=== PATIENT | female | born 1970 | race Caucasian/White ===

== ENCOUNTER 2019-02-16 22:30 | Inpatient (IN) | payer SELFPAY ==
[~2019-02-16] VITALS: Ht 157.5 cm; Wt 63.5 kg
[~2019-02-16 22:30] MED LIST: CIPROFLOXACIN500 MG PO; KLONOPIN1 MG ORAL; LATUDA20 MG PO; MEDROL DOSEPAK4 MG ORAL; PREDNISONE20 MG ORAL; PROAIR HFA8.5 GM INH; SERTRALINE HCL100 MG PO; SYMBICORT 1601 PUFFS INH; TRAMADOL HCL50 MG ORAL; ZITHROMAX250 MG ORAL
--- NOTE | 2019-02-16 22:40 | NUR ---
ED Nurse Note: PT WAS RUSHED TO ED BY BOYFRIEND C/O ASTHMA INTACT. PER BOYFRIEND (DIEGO) "SHE BEGAN TO WHEEZE AND THEN BECAME LIMP". PT WAS UNRESPONSIVE AND IMMEDIATE CPR WAS INTIATED. PT SKIN IS DIAPHORECTIC.
[2019-02-16 22:50] VITALS: BP 134/76
--- NOTE | 2019-02-16 22:50 | NUR ---
ED Nurse Note: PT WAS INTUBATED BY SERENA RT AT BEDSIDE
[2019-02-16] MEDS: Albuterol/Ipratropium 3ml neb HHN SCH ×6 (22:55→23:56)
--- NOTE | 2019-02-16 22:55 | NUR ---
RESPIRATORY NOTE: Pt came in with asthma attack/ respiratory failure so assisted ERMD with intubation. Pt intubated with 7.5 size ett at 24 at the lip secured by anchor fast. Placed pt on Vent setting of ACVC RR 18, Vt 500, FIO2 100%, and peep +5. After blood gas result titrated FIO2 to 30% ERMD aware. Pt is stable with family. Alarms are on and audible. Vent is plugged into red outlet. Will continue to monitor pt's progress.
--- NOTE | 2019-02-16 22:57 | Emergency Room Report ---
History of Present Illness General Chief Complaint: shortness of breath Source: Patient Present Illness HPI Patient is a 48-year-old female brought in by family member after increased difficulty with breathing. Patient a prior history of asthma. Patient had prior intubation in the past. Patient was noted noted to have acute onset of worsening difficulty with respirations. She had prior history of she reportedly been doing well throughout the day. Patient had been able to go shopping and had been taking her albuterol intermittently. She had not been on any steroids. She had not recently been having any productive cough. She had no known prior cardiac history. Allergies: Coded Allergies: NO KNOWN ALLERGIES (Unverified Allergy, Unknown, 07/11/15) Patient History Past Medical History: see triage record, asthma, other - anxiety Reviewed Nursing Documentation: PMH: Agreed; PSxH: Agreed Nursing Documentation-PMH Hx Cardiac Problems: No Hx Asthma: Yes Hx Cancer: No Hx Gastrointestinal Problems: No Hx Neurological Problems: Yes Hx Headaches: Yes Hx Weakness: Yes Review of Systems All Other Systems: negative except mentioned in HPI Physical Exam Sp02 EP Interpretation: reviewed General Appearance: severe distress, lethargic, other - cyanotic apneic Eyes: bilateral eye other - PERRL ENT: other Respiratory: other - no respirations Gastrointestinal: non tender, soft Procedures Critical Care Time Critical Care Time Patient had a critical medical condition which untreated could potentially result in life or limb threatening injury. Total critical care time excluding procedures approximately 45 minutes. Intubation Intubation : Consent: Emergent Intubation Method: orotracheal Tube Size (cm): 7.0 Breath Sounds after Intubation: equal Intubation Complications: no complications Post Intubation Xray: Yes Progress/Xray Impression: adequate ET tube placement Attempts: One Patient Tolerated: Well Complications: None Medical Decision Making Diagnostic Impression: Primary Impression: Respiratory failure Additional Impression: Status asthmaticus ER Course Patient presented for respiratory arrest. Differential diagnosis include was not limited to status asthmaticus, narcotic overdose, seizure, syncopal episode among others. Because of complexity of patient's case laboratory testing and imaging studies were ordered. Patient was noted to have initial been brought in by private vehicle and was initially seen to be cyanotic and apneic. Patient was started on positive pressure ventilation via bag valve mask. She was noted to have absent pulses initially was briefly undergoing CPR. She had initial return of circulation after several minutes of [id number]. Patient was started on IV fluids. She was given breathing treatments as well as magnesium. She was intubated due to apnea and subsequently was noted to have some improvement in her mental status. She was started on propofol drip to improve sedation as well as given Ativan. Laboratory testing was notable for elevated white blood count. Dr. Shon Redding was contacted for inpatient management. Labs Test 02/16/19 22:38 02/16/19 22:45 02/16/19 23:10 Arterial Blood pH 7.431 (7.350-7.450) Arterial Blood Partial Pressure CO2 35.4 mmHg (35.0-45.0) Arterial Blood Partial Pressure O2 390.2 mmHg (75.0-100.0) Arterial Blood HCO3 23.0 mmol/L (22.0-26.0) Arterial Blood Oxygen Saturation 99.4 % (95-100) Arterial Blood Base Excess -0.8 (-2-2) Anthony Test Positive White Blood Count 18.2 K/UL (4.8-10.8) Red Blood Count 4.64 M/UL (4.20-5.40) Hemoglobin 12.1 G/DL (12.0-16.0) Hematocrit 38.4 % (37.0-47.0) Mean Corpuscular Volume 83 FL (80-99) Mean Corpuscular Hemoglobin 26.0 PG (27.0-31.0) Mean Corpuscular Hemoglobin Concent 31.4 G/DL (32.0-36.0) Red Cell Distribution Width 15.7 % (11.6-14.8) Platelet Count 426 K/UL (150-450) Mean Platelet Volume 6.2 FL (6.5-10.1) Neutrophils (%) (Auto) % (45.0-75.0) Lymphocytes (%) (Auto) % (20.0-45.0) Monocytes (%) (Auto) % (1.0-10.0) Eosinophils (%) (Auto) % (0.0-3.0) Basophils (%) (Auto) % (0.0-2.0) Differential Total Cells Counted 100 Neutrophils % (Manual) 26 % (45-75) Lymphocytes % (Manual) 52 % (20-45) Monocytes % (Manual) 9 % (1-10) Eosinophils % (Manual) 12 % (0-3) Basophils % (Manual) 1 % (0-2) Band Neutrophils 0 % (0-8) Platelet Estimate Adequate Platelet Morphology Normal Anisocytosis 1+ Prothrombin Time 10.6 SEC (9.30-11.50) Prothromb Time International Ratio 1.0 (0.9-1.1) Activated Partial Thromboplast Time 23 SEC (23-33) D-Dimer 0.61 mg/L FEU (0.00-0.49) Sodium Level 140 MMOL/L (136-145) Potassium Level 3.7 MMOL/L (3.5-5.1) Chloride Level 104 MMOL/L (98-107) Carbon Dioxide Level 23 MMOL/L (21-32) Anion Gap 13 mmol/L (5-15) Blood Urea Nitrogen 9 mg/dL (7-18) Creatinine 1.1 MG/DL (0.55-1.30) Estimat Glomerular Filtration Rate 53.5 mL/min (>60) Glucose Level 192 MG/DL (74-106) Calcium Level 8.4 MG/DL (8.5-10.1) Total Bilirubin 0.2 MG/DL (0.2-1.0) Aspartate Amino Transf (AST/SGOT) 24 U/L (15-37) Alanine Aminotransferase (ALT/SGPT) 16 U/L (12-78) Alkaline Phosphatase 93 U/L (46-116) Troponin I 0.000 ng/mL (0.000-0.056) Pro-B-Type Natriuretic Peptide 47 pg/mL (0-125) Total Protein 6.8 G/DL (6.4-8.2) Albumin 3.9 G/DL (3.4-5.0) Globulin 2.9 g/dL Albumin/Globulin Ratio 1.3 (1.0-2.7) Triglycerides Level 139 MG/DL (30-150) Thyroid Stimulating Hormone (TSH) 2.231 uiU/mL (0.358-3.740) Salicylates Level 4.8 ug/mL (2.8-20) Acetaminophen Level < 2 MCG/ML (10-30) Serum Alcohol < 3 mg/dL Urine Color Pale yellow Urine Appearance Clear Urine pH 7 (4.5-8.0) Urine Specific [place] 1.005 (1.005-1.035) Urine Protein Negative (NEGATIVE) Urine Glucose (UA) Negative (NEGATIVE) Urine Ketones Negative (NEGATIVE) Urine Blood 1+ (NEGATIVE) Urine Nitrite Negative (NEGATIVE) Urine Bilirubin Negative (NEGATIVE) Urine Urobilinogen Normal MG/DL (0.0-1.0) Urine Leukocyte Esterase Negative (NEGATIVE) Urine RBC 0-2 /HPF (0 - 2) Urine WBC 0-2 /HPF (0 - 2) Urine Squamous Epithelial Cells Occasional /LPF Urine Bacteria Occasional /HPF (NONE) Urine HCG, Qualitative Negative (NEGATIVE) Urine Opiates Screen Negative (NEGATIVE) Urine Barbiturates Screen Negative (NEGATIVE) Phencyclidine (PCP) Screen Negative (NEGATIVE) Urine Amphetamines Screen Negative (NEGATIVE) Urine Benzodiazepines Screen Negative (NEGATIVE) Urine Cocaine Screen Negative (NEGATIVE) Urine Marijuana (THC) Screen Negative (NEGATIVE) Status: improved Disposition: ADMITTED INPATIENT Condition: Critical NorrisRalph MD Feb 16, 2019 22:57
--- NOTE | 2019-02-16 23:00 | NUR ---
ED Nurse Note: ERMD PUSHED 3ML OF PROPOFOL
--- NOTE | 2019-02-16 23:00 | NUR ---
ED Nurse Note: caitlin () [phone]
[2019-02-16 23:05] VITALS: BP 109/80
--- NOTE | 2019-02-16 23:05 | NUR ---
ED Nurse Note: PROPOFOL INFUSION INTIATED AT 20MCG/KG/MIN PER ERMD ORDER
[2019-02-16 23:20] VITALS: BP 90/63
[2019-02-16 23:24] LABS: ANION GAP 13 mmol/L (5-15); BLOOD UREA NITROGEN 9 mg/dL (7-18); CALCIUM 8.4 MG/DL (8.5-10.1); CARBON DIOXIDE 23 MMOL/L (21-32); CHLORIDE 104 MMOL/L (98-107); CREATININE 1.1 MG/DL (0.55-1.30); POTASSIUM 3.7 MMOL/L (3.5-5.1); SODIUM 140 MMOL/L (136-145)
--- NOTE | 2019-02-16 23:27 | Diagnostic Imaging Report ---
Indication: Dyspnea Comparison: 08/10/2015 A single view chest radiograph was obtained. Findings: Endotracheal tube is 4 cm above the kendra. The NG tube is within the stomach with the proximal port about the 4 to 5 cm below the GE junction. The lungs are clear. Heart size is normal. Bones are unremarkable. IMPRESSION: Endotracheal tube and nasogastric tube satisfactory position.
[2019-02-16 23:30] LABS: APPEARANCE,URINE CLEAR; BILIRUBIN, URINE NEGATIVE (NEGATIVE); COLOR,URINE PALE YELLOW; GLUCOSE, URINE (UA) NEGATIVE (NEGATIVE); KETONES,URINE NEGATIVE (NEGATIVE); LEUKOCYTE ESTERASE ,URINE NEGATIVE (NEGATIVE); NITRITE,URINE NEGATIVE (NEGATIVE); PH,URINE 7 (4.5-8.0); PROTEIN,URINE NEGATIVE (NEGATIVE); UROBILINOGEN,URINE NORMAL MG/DL (0.0-1.0)
--- NOTE | 2019-02-16 23:30 | NUR ---
ED Nurse Note: JAKE CORTEZ AT BEDSIDE
[2019-02-16 23:35] VITALS: BP 121/77
[2019-02-16 23:37] LABS: HEMATOCRIT 38.4 % (37.0-47.0); HEMOGLOBIN 12.1 G/DL (12.0-16.0); MEAN CORPUSCULAR VOLUME 83 FL (80-99); PLATELET COUNT 426 K/UL (150-450); RED BLOOD COUNT 4.64 M/UL (4.20-5.40); RED CELL DISTRIBUTION WIDTH 15.7 % (11.6-14.8); WHITE BLOOD COUNT 18.2 K/UL (4.8-10.8)
[2019-02-16 23:39] LABS: ALANINE AMINOTRANSFERASE 16 U/L (12-78); ALBUMIN 3.9 G/DL (3.4-5.0); ALBUMIN/GLOBULIN RATIO 1.3 (1.0-2.7); ALKALINE PHOSPHATASE 93 U/L (46-116); ASPARTATE AMINO TRANSFERASE 24 U/L (15-37); BILIRUBIN,TOTAL 0.2 MG/DL (0.2-1.0)
[2019-02-16] MEDS ORDERED: LORazepam Inj 2mg/ml 1ml IV ONE (23:45)
[2019-02-16 23:50] VITALS: BP 123/79
[2019-02-16 23:57] LABS: TRIGLYCERIDES 139 MG/DL (30-150)
[2019-02-17] VITALS (36 sets, daily range): BP systolic 93–149; BP diastolic 42–109
[2019-02-17] MEDS ORDERED: Solu-MEDROL 125mg Inj IVP ONE
[2019-02-17] MEDS: Albuterol/Ipratropium 3ml neb HHN SCH ×6 (00:24→22:56)
--- NOTE | 2019-02-17 00:40 | NUR ---
ED Nurse Note: TELEPHONE REPORT GIVEN TO RACQUEL BROWN
[2019-02-17] MEDS ORDERED: LAMOTRIGINE100 M2 PO (00:49)
--- NOTE | 2019-02-17 01:00 | NUR ---
ED Nurse Note: PT BROUGHT UP WITH ALEXIA RN AND SHAYLA EMT. PT IS AOX4, SKIN INTACT. 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 PT SHOWS NO CURRENT SIGNS OF DISTRESS. ALL BELONGINGS SENT HOME EXCEPT FOR CELLPHONE.
--- NOTE | 2019-02-17 01:20 | NUR ---
NURSE NOTES: Patient is transferred from ED and received report from RACQUEL Cardenas. Alert and oriented x4. Able to follow commands and able make needs known by writing. ETT 7.5/24 and vent setting AC 18, TV 500, FiO2 30% and Peep 5. Propofol drip running at 25mcg/kg/hr via left IJ 18G. Right wrist IV 20G intact and clean. ST 100s on monitor. Toth intact and draining by gravity with yellow color urine. Call-light placed in easy reach. Will continue plan of care.
--- NOTE | 2019-02-17 01:30 | NUR ---
NURSE NOTES: Patient is still awake and calm, RASS 0. Increased propofol dip to 30mcg/kg/hr=13.5ml/hr.
--- NOTE | 2019-02-17 01:32 | NUR ---
NURSE NOTES: Paged Dr. Redding for admission orders.
--- NOTE | 2019-02-17 01:45 | NUR ---
NURSE NOTES: Patient is still awake and calm, RASS 0. Increased propofol dip to 35mcg/kg/hr=15.75ml/hr.
--- NOTE | 2019-02-17 02:00 | NUR ---
NURSE NOTES: Patient is drowsy, RASS -1. Increased propofol dip to 40mcg/kg/hr=18ml/hr.
--- NOTE | 2019-02-17 02:02 | NUR ---
NURSE NOTES: Called Dr. Redding and left message for admission orders.
--- NOTE | 2019-02-17 02:15 | NUR ---
NURSE NOTES: Patient is drowsy, RASS -1. Increased propofol dip to 45mcg/kg/hr=20.25ml/hr.
--- NOTE | 2019-02-17 02:30 | NUR ---
NURSE NOTES: Patient is light sedated, RASS -2. Continue propofol dip @ 45mcg/kg/hr=20.25ml/hr.
--- NOTE | 2019-02-17 05:12 | NUR ---
NURSE NOTES: Obtained admission orders from Dr. Flores.
[2019-02-17] MEDS ORDERED: Albuterol ud Inhalation HHN PRN (05:15)
[2019-02-17] MEDS ORDERED: D5NS 1,000 ML IV SCH (05:15)
--- NOTE | 2019-02-17 05:30 | NUR ---
NURSE NOTES: Patient is alert and asking for extubation. Propofol drip started @45mcg/kg/hr=20.25ml/hr. Will continue plan of care.
--- NOTE | 2019-02-17 05:44 | NUR ---
NURSE NOTES: Patient refused NG tube insertion. Explained benefits and risks x3. Still refused. Patient is asking for extubation.
[2019-02-17] MEDS: Solu-MEDROL 40mg Inj IVP SCH ×3 (05:58→21:59)
[2019-02-17] MEDS: Azithromycin 500 MG in D5W 275 ML IV SCH (06:43)
--- NOTE | 2019-02-17 07:30 | NUR ---
HAND-OFF: Report given to RACQUEL Prieto. Endorsed plan of care.
[2019-02-17] MEDS: LORazepam Inj 2mg/ml 1ml IV PRN ×2 (07:32→11:53)
--- NOTE | 2019-02-17 07:40 | NUR ---
NURSE NOTES: Report received from Everett CLEMENT. Pt alert and oriented x4, able to make needs known. Pt on potline monitor, ST 100s. Pt orally intubated ETT 7.5, 24 cm at the lipline, AC 18, TV 300, 30% FiO2, PEEP 5. Toth noted and intact with draining clear yellow urine. Right W 20G redness and swelling noted. Left EJ 18 G connected to propofol 50 mg/hr. 22G left hand IV inserted. Safety measures in place with bed locked and in lowest position, side rails x3 up and bed alarm on. Will continue to monitor and continue plan of care.
[2019-02-17 08:33] LABS: HEMATOCRIT 34.1 % (37.0-47.0); HEMOGLOBIN 10.8 G/DL (12.0-16.0); MEAN CORPUSCULAR VOLUME 81 FL (80-99); PLATELET COUNT 243 K/UL (150-450); RED BLOOD COUNT 4.22 M/UL (4.20-5.40); RED CELL DISTRIBUTION WIDTH 15.1 % (11.6-14.8); WHITE BLOOD COUNT 9.4 K/UL (4.8-10.8)
[2019-02-17] MEDS: cefTRIAXone 1 GM in D5W 55 ML IVPB SCH (08:41)
[2019-02-17] MEDS: Heparin 5000 units/ml inj SUBQ SCH ×2 (08:42→20:52)
[2019-02-17 08:43] LABS: ANION GAP 12 mmol/L (5-15); BLOOD UREA NITROGEN 7 mg/dL (7-18); CALCIUM 8.2 MG/DL (8.5-10.1); CARBON DIOXIDE 22 MMOL/L (21-32); CHLORIDE 100 MMOL/L (98-107); CREATININE 0.8 MG/DL (0.55-1.30); POTASSIUM 3.4 MMOL/L (3.5-5.1); SODIUM 134 MMOL/L (136-145)
[2019-02-17] MEDS ORDERED: Pantoprazole Inj IVP SCH (09:00)
--- NOTE | 2019-02-17 09:34 | NUR ---
NURSE NOTES: Pt given ativan for agitation. Propofol decreased to 45 mg/hr. Will continue to monitor.
--- NOTE | 2019-02-17 10:15 | History & Physical ---
History and Physical History & Physicial History and Physical HPI Patient is a 48-year-old female with a prior history of Asthma and Anxiety, admitted with Asthma exacerbation requiring intubation in the ED. Patient had prior intubation in the past. Patient was noted noted to have acute onset of worsening difficulty with respirations. She had prior history of she reportedly been doing well throughout the day. She had not been on any steroids. She had not recently been having any productive cough. She had no known prior cardiac history. 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 Impression: Respiratory failur Status asthmaticus History of Anxiety Hyperglycemia Elevated WCC - possible chest infection Plan AC ventilation Sedation: Propofol/Fentenyl IV Solumdrol Monitor labs, supplement H, Mg ISS Wean ventilator as tolerated PPX IV antibiotics given elevated WCC IV Fluids CXR: noted Labs noted Test 02/16/19 22:38 02/16/19 22:45 02/16/19 23:10 Arterial Blood pH 7.431 (7.350-7.450) Arterial Blood Partial Pressure CO2 35.4 mmHg (35.0-45.0) Arterial Blood Partial Pressure O2 390.2 mmHg (75.0-100.0) Arterial Blood HCO3 23.0 mmol/L (22.0-26.0) Arterial Blood Oxygen Saturation 99.4 % (95-100) Arterial Blood Base Excess -0.8 (-2-2) Anthony Test Positive White Blood Count 18.2 K/UL (4.8-10.8) Red Blood Count 4.64 M/UL (4.20-5.40) Hemoglobin 12.1 G/DL (12.0-16.0) Hematocrit 38.4 % (37.0-47.0) Mean Corpuscular Volume 83 FL (80-99) Mean Corpuscular Hemoglobin 26.0 PG (27.0-31.0) Mean Corpuscular Hemoglobin Concent 31.4 G/DL (32.0-36.0) Red Cell Distribution Width 15.7 % (11.6-14.8) Platelet Count 426 K/UL (150-450) Mean Platelet Volume 6.2 FL (6.5-10.1) Neutrophils (%) (Auto) % (45.0-75.0) Lymphocytes (%) (Auto) % (20.0-45.0) Monocytes (%) (Auto) % (1.0-10.0) Eosinophils (%) (Auto) % (0.0-3.0) Basophils (%) (Auto) % (0.0-2.0) Differential Total Cells Counted 100 Neutrophils % (Manual) 26 % (45-75) Lymphocytes % (Manual) 52 % (20-45) Monocytes % (Manual) 9 % (1-10) Eosinophils % (Manual) 12 % (0-3) Basophils % (Manual) 1 % (0-2) Band Neutrophils 0 % (0-8) Platelet Estimate Adequate Platelet Morphology Normal Anisocytosis 1+ Prothrombin Time 10.6 SEC (9.30-11.50) Prothromb Time International Ratio 1.0 (0.9-1.1) Activated Partial Thromboplast Time 23 SEC (23-33) D-Dimer 0.61 mg/L FEU (0.00-0.49) Sodium Level 140 MMOL/L (136-145) Potassium Level 3.7 MMOL/L (3.5-5.1) Chloride Level 104 MMOL/L (98-107) Carbon Dioxide Level 23 MMOL/L (21-32) Anion Gap 13 mmol/L (5-15) Blood Urea Nitrogen 9 mg/dL (7-18) Creatinine 1.1 MG/DL (0.55-1.30) Estimat Glomerular Filtration Rate 53.5 mL/min (>60) Glucose Level 192 MG/DL (74-106) Calcium Level 8.4 MG/DL (8.5-10.1) Total Bilirubin 0.2 MG/DL (0.2-1.0) Aspartate Amino Transf (AST/SGOT) 24 U/L (15-37) Alanine Aminotransferase (ALT/SGPT) 16 U/L (12-78) Alkaline Phosphatase 93 U/L (46-116) Troponin I 0.000 ng/mL (0.000-0.056) Pro-B-Type Natriuretic Peptide 47 pg/mL (0-125) Total Protein 6.8 G/DL (6.4-8.2) Albumin 3.9 G/DL (3.4-5.0) Globulin 2.9 g/dL Albumin/Globulin Ratio 1.3 (1.0-2.7) Triglycerides Level 139 MG/DL (30-150) Thyroid Stimulating Hormone (TSH) 2.231 uiU/mL (0.358-3.740) Salicylates Level 4.8 ug/mL (2.8-20) Acetaminophen Level < 2 MCG/ML (10-30) Serum Alcohol < 3 mg/dL Urine Color Pale yellow Urine Appearance Clear Urine pH 7 (4.5-8.0) Urine Specific [place] 1.005 (1.005-1.035) Urine Protein Negative (NEGATIVE) Urine Glucose (UA) Negative (NEGATIVE) Urine Ketones Negative (NEGATIVE) Urine Blood 1+ (NEGATIVE) Urine Nitrite Negative (NEGATIVE) Urine Bilirubin Negative (NEGATIVE) Urine Urobilinogen Normal MG/DL (0.0-1.0) Urine Leukocyte Esterase Negative (NEGATIVE) Urine RBC 0-2 /HPF (0 - 2) Urine WBC 0-2 /HPF (0 - 2) Urine Squamous Epithelial Cells Occasional /LPF Urine Bacteria Occasional /HPF (NONE) Urine HCG, Qualitative Negative (NEGATIVE) Urine Opiates Screen Negative (NEGATIVE) Urine Barbiturates Screen Negative (NEGATIVE) Phencyclidine (PCP) Screen Negative (NEGATIVE) Urine Amphetamines Screen Negative (NEGATIVE) Urine Benzodiazepines Screen Negative (NEGATIVE) Urine Cocaine Screen Negative (NEGATIVE) Urine Marijuana (THC) Screen Negative (NEGATIVE) Flaquito Flores MD Feb 17, 2019 10:15
--- NOTE | 2019-02-17 10:40 | NUR ---
NURSE NOTES: Discussed with Dr Flores about ABG results. ordered to decrease tidal volume to 450 and to recheck ABG at 2 pm. also ordered to replace mag and KCL. Propofol rate increased back to 50 mg for agitation. Will continue to monitor.
--- NOTE | 2019-02-17 11:40 | NUR ---
NURSE NOTES: Pt family member came to visit. Pt sound asleep, on propofol. No acute distress. Will continue to monitor.
[2019-02-17] MEDS ORDERED: LORazepam Inj 2mg/ml 1ml IV PRN (12:00)
--- NOTE | 2019-02-17 12:55 | NUR ---
NURSE NOTES: Pt family member returned. Pt awake and agitated. Pt trying to write needs on paper but it is difficult to read what she is writing. No acute distress. Will continue to monitor.
[2019-02-17] MEDS ORDERED: NS 275ml ONE (13:26)
[2019-02-17] MEDS ORDERED: Tubing IV Secondary IV ONE (13:26)
[2019-02-17] MEDS ORDERED: D5W 275ml ONE (13:26)
[2019-02-17] MEDS ORDERED: D5NS 1000ml IV ONE (13:26)
[2019-02-17] MEDS: Hydromorphone 0.5mg/0.5ml inj IVP PRN ×2 (14:25→22:16)
--- NOTE | 2019-02-17 14:30 | NUR ---
NURSE NOTES: Pt extubated after ABG results on CPAP. Pt placed on cool mist 30% saturating 100%. Pt saying she wants to be discharged. Explained to pt that dr wants her to stay over night and discussed option of going home against medical advice. Pt convinced by family members that it is best to follow dr's orders. Pt given dilaudid IVP for headache. VSS and no acute distress. Will continue to monitor.
--- NOTE | 2019-02-17 17:02 | NUR ---
NURSE NOTES: DCd pt hu and IVF. Will continue to monitor.
--- NOTE | 2019-02-17 17:39 | NUR ---
NURSE NOTES: Pt restless and took off leads, blood pressure cuff and oxygen saturation. Spoke to Dr Flores and asked him if we can transfer to med surg and dr said pt needs to stay in ICU for close monitoring. Discussed with pt about signing out against medical advice but she wont be able to get a prescription. Will continue to monitor.
[2019-02-17] MEDS: LORazepam 1mg tab ORAL PRN (17:47)
--- NOTE | 2019-02-17 19:15 | NUR ---
HAND-OFF: Report given to Angeles CLEMENT.
--- NOTE | 2019-02-17 19:54 | NUR ---
NURSE NOTES: PT AWAKE AND ALERT ON RA O2 SAT 96 O/O NO ACUTE DISTRESS NOTED REPOSITION AND SUCTION
--- NOTE | 2019-02-17 22:00 | NUR ---
NURSE NOTES: pt c/o headache sche 7 medicated with diluidid o.o5 mg as order
[2019-02-18] VITALS (11 sets, daily range): BP systolic 95–117; BP diastolic 53–83
--- NOTE | 2019-02-18 | NUR ---
NURSE NOTES: pt asleep no c/o pain reposition
--- NOTE | 2019-02-18 02:00 | NUR ---
NURSE NOTES: awake and alert up to br to void tolerated well no complete pain reposition
[2019-02-18] MEDS: Albuterol/Ipratropium 3ml neb HHN SCH ×3 (03:20→10:44)
--- NOTE | 2019-02-18 04:00 | NUR ---
NURSE NOTES: refuse bed bath reposition and resp tx given no c/o pain
[2019-02-18 04:53] LABS: HEMATOCRIT 32.9 % (37.0-47.0); HEMOGLOBIN 10.3 G/DL (12.0-16.0); MEAN CORPUSCULAR VOLUME 82 FL (80-99); PLATELET COUNT 254 K/UL (150-450); RED BLOOD COUNT 4.03 M/UL (4.20-5.40); RED CELL DISTRIBUTION WIDTH 15.6 % (11.6-14.8); WHITE BLOOD COUNT 18.2 K/UL (4.8-10.8)
[2019-02-18 04:54] LABS: ANION GAP 8 mmol/L (5-15); BLOOD UREA NITROGEN 6 mg/dL (7-18); CALCIUM 8.9 MG/DL (8.5-10.1); CARBON DIOXIDE 25 MMOL/L (21-32); CHLORIDE 107 MMOL/L (98-107); CREATININE 0.7 MG/DL (0.55-1.30); POTASSIUM 4.3 MMOL/L (3.5-5.1); SODIUM 140 MMOL/L (136-145)
--- NOTE | 2019-02-18 06:00 | NUR ---
HAND-OFF: Report given to madison dos santos .using sbar
[2019-02-18] MEDS: Azithromycin 500 MG in D5W 275 ML IV SCH (06:21)
[2019-02-18] MEDS: Solu-MEDROL 40mg Inj IVP SCH (06:21)
[2019-02-18] MEDS: LORazepam 1mg tab ORAL PRN (07:10)
--- NOTE | 2019-02-18 07:15 | NUR ---
NURSE NOTES: Report received from Angeles CLEMENT. Pt alert and oriented x4, able to make needs known. Pt c/o of soreness at iv site. want meds to be stopped and changed. pt on campus monitor, NSR. Voids clear yellow urine. Left hand IV inserted. Safety measures in place with bed locked and in lowest position, side rails x3 up and bed alarm on. Will continue to monitor and continue plan of care.
[2019-02-18] MEDS: cefTRIAXone 1 GM in D5W 55 ML IVPB SCH (07:30)
--- NOTE | 2019-02-18 08:28 | General Progress Note ---
Assessment/Plan Assessment/Plan: status asthmaticus respiratory failure, acute hyperglycemia ?steroid induced diabetes PLAN IV steroids- dc medrol dose lyric proair and singulair and advair does not want to stay no sob and able to ambulate needs close follow up; patient aware needs to follow up on blood sugars; patient aware impression, plan, and exam edited and reviewed in detail care discussed with RN Subjective Allergies: Coded Allergies: NO KNOWN ALLERGIES (Unverified Allergy, Unknown, 07/11/15) Subjective extubated off oxygen wants to go home Objective Last 24 Hour Vital Signs Date Time Temp Pulse Resp B/P (MAP) Pulse Ox O2 Delivery O2 Flow Rate FiO2 02/18/19 07:19 93 20 97 Room Air 21 02/18/19 07:18 Room Air 21 02/18/19 07:18 Room Air 21 02/18/19 07:00 91 20 117/83 (94) 98 02/18/19 06:00 98.5 81 25 95/59 (71) 96 02/18/19 05:00 87 24 100/53 (69) 97 02/18/19 04:00 98 23 105/54 (71) 94 02/18/19 04:00 Venturi Mask 8.0 Venturi Mask 02/18/19 04:00 93 02/18/19 03:28 92 19 99 Room Air 21 02/18/19 03:21 82 20 97 Room Air 21 02/18/19 03:00 98.5 75 21 103/57 (72) 95 02/18/19 02:00 81 15 111/66 (81) 97 02/18/19 01:00 81 23 115/66 (82) 95 02/18/19 00:00 Venturi Mask 8.0 Venturi Mask 02/18/19 00:00 98.5 82 20 115/67 (83) 94 02/17/19 22:57 Room Air 21 02/17/19 22:57 Room Air 21 02/17/19 22:00 86 18 106/50 (68) 99 02/17/19 21:00 97 11 100/50 (67) 98 02/17/19 20:00 98.5 89 24 94/49 (64) 94 02/17/19 20:00 Venturi Mask 8.0 Venturi Mask 02/17/19 20:00 92 02/17/19 19:02 98 19 108/65 (79) 99 02/17/19 19:00 Venturi Mask 8.0 30 02/17/19 19:00 Venturi Mask 8.0 30 02/17/19 18:00 98 19 121/51 (74) 98 02/17/19 17:00 103 16 127/65 (85) 94 02/17/19 16:00 98.4 110 17 149/77 (101) 100 02/17/19 16:00 Venturi Mask 8.0 Venturi Mask 02/17/19 16:00 100 02/17/19 15:46 98 18 100 Venturi Mask 8.0 30 02/17/19 15:35 96 18 98 Venturi Mask 8.0 30 02/17/19 15:00 93 22 121/69 (86) 97 02/17/19 14:05 Venturi Mask 8.0 30 02/17/19 14:00 104 19 131/84 (100) 100 02/17/19 13:00 98.6 94 18 132/101 (111) 99 02/17/19 12:33 96 21 02/17/19 12:00 92 17 129/70 (89) 100 02/17/19 12:00 30 02/17/19 12:00 Mechanical Ventilator 02/17/19 12:00 97 02/17/19 11:11 95 18 100 Mechanical Ventilator 30 02/17/19 11:02 86 18 98 Mechanical Ventilator 30 02/17/19 11:02 88 18 30 02/17/19 11:00 95 18 121/78 (92) 99 02/17/19 10:00 94 18 115/55 (75) 99 02/17/19 09:22 88 18 30 02/17/19 09:20 18 122/64 Mechanical Ventilator 02/17/19 09:00 88 18 122/64 (83) 99 Intake and Output 02/17/19 02/18/19 19:00 07:00 Intake Total 897.153 ml 250 ml Output Total 1625 ml 500 ml Balance -727.847 ml -250 ml Intake Oral 250 ml IV Total 897.153 ml Output Urine Total 1625 ml 500 ml Laboratory Tests 02/17/19 13:00: Arterial Blood pH 7.458H, Arterial Blood Partial Pressure CO2 30.1L, Arterial Blood Partial Pressure O2 107.2H, Arterial Blood HCO3 20.8L, Arterial Blood Oxygen Saturation 97.7, Arterial Blood Base Excess -2.2L, Anthony Test Positive 02/18/19 03:05: White Blood Count 18.2#H, Red Blood Count 4.03L, Hemoglobin 10.3L, Hematocrit 32.9L, Mean Corpuscular Volume 82, Mean Corpuscular Hemoglobin 25.6L, Mean Corpuscular Hemoglobin Concent 31.4L, Red Cell Distribution Width 15.6H, Platelet Count 254, Mean Platelet Volume 6.7, Neutrophils (%) (Auto) , Lymphocytes (%) (Auto) , Monocytes (%) (Auto) , Eosinophils (%) (Auto) , Basophils (%) (Auto) , Differential Total Cells Counted 100, Neutrophils % ( Manual) 91H, Lymphocytes % (Manual) 9L, Monocytes % (Manual) 0L, Eosinophils % ( Manual) 0, Basophils % (Manual) 0, Band Neutrophils 0, Platelet Estimate Adequate, Platelet Morphology Normal, Hypochromasia 1+, Sodium Level 140, Potassium Level 4.3, Chloride Level 107, Carbon Dioxide Level 25, Anion Gap 8, Blood Urea Nitrogen 6L, Creatinine 0.7, Estimat Glomerular Filtration Rate > 60 , Glucose Level 132#H, Calcium Level 8.9, Magnesium Level 2.4 Height (Feet): 5 Height (Inches): 2.00 Weight (Pounds): 140 Objective WDWN NAD normal breath sounds bilaterally without rhonchi or wheeze [id number] without MRG NABS nontender no HSM no CCE nonfocal Shon Redding MD Feb 18, 2019 08:28
[2019-02-18] MEDS ORDERED: PROAIR HFA8.5 GM INH ×2 (09:01→09:02)
[2019-02-18] MEDS ORDERED: ADVAIR 500-501 EACH INH (09:10)
--- NOTE | 2019-02-18 10:57 | NUR ---
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 96.8 HR 104 RR 22 B/P 134/76 AC 18 TV 500 FIO2 100% PEEP 5 WBC 18.2 D-DIMER 0.61 IS: MAGNESIUM IV PROPOFOL IV DUONEB HHN ADMITTED TO ICU @ 01008 ICU STATUS DCP PENDING HOSPITAL STAY
--- NOTE | 2019-02-18 12:00 | NUR ---
NURSE NOTES: discharge to family, transported off floor via wheelchair, belongings signed off. pt educated on new medications and to citrus picker at pharmacy. f/u w/ PCP. pt dressed and ready to go. ID band and iv lt hand removed.
[2019-02-18] MEDS ORDERED: NS 275ml ONE (12:04)
--- NOTE | 2019-02-18 13:30 | NUR ---
NURSE NOTES: Report received from Angeles CLEMENT. Pt alert and oriented x4, able to make needs known. Pt c/o of soreness at iv site. want meds to be stopped and changed. pt on monitoring tech, NSR. Voids clear yellow urine. Left hand IV inserted. Safety measures in place with bed locked and in lowest position, side rails x3 up and bed alarm on. Will continue to monitor and continue plan of care. Addendum: 02/18/19 at 1343 by Sakina Marquez RN NURSE NOTES: different time
--- NOTE | 2019-02-18 20:31 | Cardiology Report ---
APPROVED REPORT EKG Measurement Heart [id number] Sinus rhythm with fusion complexes Possible Left atrial enlargement Borderline ECG
--- NOTE | 2019-03-02 10:57 | Discharge Summary ---
Discharge Summary Discharge Summary _ DATE OF ADMISSION: 02/17/2019 DATE OF DISCHARGE: 02/18/2019 DISCHARGED BY: Dr. Redding REASON FOR ADMISSION: 48 years old female with past medical history of asthma , prior intubation, anxiety, presented to emergency department with difficulty breathing. Patient was taking albuterol inhaler as needed, but noted worsening difficulty with respiration. She denied any cough,. No prior cardiac history. Upon evaluation patient was noted to be in respiratory arrest and required emergency oral intubation. Chest x-ray revealed clear lungs and proper position of endotracheal tube. Patient subsequently admitted to ICU for further management. HOSPITAL COURSE: Patient admitted to ICU Vent support and pulmonary toilet provided. Patient was on propofol and fentanyl drips initially. Patient started on the IV steroids. Sliding scale of insulin was instituted for management of blood sugar. GI prophylaxis provided. Patient was on IV fluids and empiric antibiotics for leukocytosis .' GI prophylaxis with PPI provided. Patient was able to be weaned soon from ventilator. Patient did not want to stay more in the hospital. Patient had no shortness of breath and was able to ambulate without difficulties. Pulse oximetry was stable on room air. Prescription provided for Medrol Dosepak, inhalers Proair and Advair , and Singulair. As mentioned above, chest x-ray was clear. ' Prescription for empiric antibiotics provided. Due to rapid and unexpected improvement in patient condition, patient was discharged in 1 day. 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 DISCHARGE INSTRUCTIONS: Patient was discharged home . Follow up with primary care provider in one week. I have been assigned to dictate discharge summary for this account. I was not involved in the patient's management. Yolanda Valle NP Mar 02, 2019 10:57
== END 2019-02-18 12:05 | disposition home or self-care (01) | DRG 208 ==
LOC: EMR 22:44 → ICU 02-17 00:01 → EDBEDREQ 02-17 00:51
PROC: 5A1935Z Respiratory Ventilation, Less than 24 Consecutive Hours (ICD-10-PCS; principal; 2019-02-17)
PROC: 0BH17EZ Insertion of Endotracheal Airway into Trachea, Via Natural or Artificial Opening (ICD-10-PCS; principal; 2019-02-17)
DX: J45.902 Unspecified asthma with status asthmaticus (principal); J96.00 Acute respiratory failure, unspecified whether with hypoxia or hypercapnia; F41.9 Anxiety disorder, unspecified; T38.0X5A Adverse effect of glucocorticoids and synthetic analogues, initial encounter; E09.65 Drug or chemical induced diabetes mellitus with hyperglycemia
CPT/HCPCS: 31500; 36415; 36600; 71045; 80048; 80053; 80307; 80329; 81001; 81025; 82803; 82962; 83735; 83880; 84443; 84478; 84484; 85007; 85025; 85379; 85610; 85730; 87081; 93005; 94002; 94640; 94664; 96365; 96375; 99291; J2405; J7620

== ENCOUNTER 2019-04-25 07:48 | Emergency (ER) | payer SELFPAY ==
[~2019-04-25] VITALS: Ht 157.5 cm; Wt 63.5 kg
[~2019-04-25 07:48] MED LIST changes: +ADVAIR 500-501 EACH INH; +LAMOTRIGINE100 M2 PO
--- NOTE | 2019-04-25 07:53 | NUR ---
ED Nurse Note: PT WALKED IN TO ER TODAY FROM HOME. AOX4. PT C/O ASTHMA ATTACK X LAST NIGHT. PT STATES SHE RAN OUT OF HER INHALER AT HOME AND WAS ONLY ABLE TO TAKE PREDNISONE AT HOME. AT BEDSIDE, AUDIBLE WHEEZING TO BILATERAL LOBES, BREATHING SLIGHTLY LABORED BUT PT ABLE TO SPEAK IN FULL SENTENCES, RR18, O2SAT 99% ON RA. RT CALLED FOR BREATHING TX. DR MORENO AT BEDSIDE FOR EVALUATION.
[2019-04-25 07:54] VITALS: BP 120/69
[2019-04-25] MEDS ORDERED: Albuterol/Ipratropium 3ml neb HHN ONE ×2 (08:00→08:45)
--- NOTE | 2019-04-25 08:07 | Emergency Room Report ---
History of Present Illness General Chief Complaint: Asthma Source: Patient, Medical Record Present Illness HPI Patient is a 48-year-old female presents after increased difficulty with breathing. Patient was noted to have prior history of significant asthma. She had prior intubation x2. Patient had run out of her asthma medication. She did have some oral steroids at home and so she took 2 doses of oral methylprednisolone. She denies any fever. She denies any productive cough. She reports having increased chest tightness. She denies any prior cardiac history. She denies any leg pain or swelling.Patient reports being allergic to cats and living with several cats in her home. Allergies: Coded Allergies: NO KNOWN ALLERGIES (Unverified Allergy, Unknown, 07/11/15) Patient History Past Medical History: see triage record Last Menstrual Period: 04/13/2019 Reviewed Nursing Documentation: PMH: Agreed; PSxH: Agreed Nursing Documentation-PMH Past Medical History: No History, Except For Hx Cardiac Problems: No Hx Asthma: Yes Hx Cancer: No Hx Gastrointestinal Problems: No Hx Neurological Problems: No Hx Headaches: Yes Hx Weakness: Yes Review of Systems All Other Systems: negative except mentioned in HPI Physical Exam Vital Signs Date Time Temp Pulse Resp B/P (MAP) Pulse Ox O2 Delivery O2 Flow Rate FiO2 04/25/19 07:52 98.1 101 20 117/81 (93) 95 Room Air Sp02 EP Interpretation: reviewed, normal General Appearance: normal inspection, alert, Chronically Ill Head: atraumatic Eyes: bilateral eye PERRL ENT: normal ENT inspection, hearing grossly normal, normal voice Neck: normal inspection, full range of motion, supple, no bony tend Respiratory: normal inspection, no retraction, wheezing Cardiovascular #1: normal inspection, regular rate, rhythm, no edema Gastrointestinal: normal inspection, normal bowel sounds, non tender, soft, no guarding, no hernia Genitourinary: no CVA tenderness Musculoskeletal: normal inspection, back normal, normal range of motion Neurologic: normal inspection, alert, oriented x3, responsive, airline lounge 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 Differential diagnosis included but was not limited to asthma exacerbation, pneumonia, pneumothorax, congestive heart failure, viral respiratory infection, pulmonary embolism, anaphylaxis among others. She was placed in the examination room and evaluated by me immediately. Patient was checked periodically to assure stability and response to treatment. Patient was noted to have prior history of asthma. Patient does not appear to have risk for pulmonary embolism and has equal breath sounds. She was initially noted to have mild respiratory distress with mild wheezing and good air movement. Patient was given breathing treatment as well as steroids. Patient was reexamined after breathing treatment and had improvement in air movement. Patient was advised that her asthma is likely triggered by her pets her pets she should avoid contact with them as much possible. She appears stable for outpatient management. Patient was given prescription for oral steroids as well as albuterol. Patient was advised to recheck with primary care physician in 1-2 days. Patient to return for any worsening or other concerns. Last Vital Signs Date Time Temp Pulse Resp B/P (MAP) Pulse Ox O2 Delivery O2 Flow Rate FiO2 04/25/19 07:54 98.2 89 16 120/69 99 Room Air Status: improved Disposition: HOME, SELF-CARE Condition: Stable Scripts Albuterol Sulfate* (ALBUTEROL SULFATE MDI*) 8.5 Gm Hfa.aer.ad 2 PUFF INH Q4H PRN for cough/wheezing, #1 EA 0 Refills Prov: Ralph Pisano MD 04/25/19 Ralph Pisano MD Apr 25, 2019 08:07
[2019-04-25] MEDS ORDERED: ALBUTEROL SULF8.5 GM INH ×3 (08:54→09:11)
--- NOTE | 2019-04-25 09:07 | NUR ---
ED Nurse Note: PT LAYING PEACEFULLY IN BED IN NAD. AOX4. PRESCRIPTION AND DISCHARGE PAPERWORK EXPLAINED TO PT. PT VERBALIZES UNDERSTANDING AND ALL QUESTIONS ANSWERED. PRESRIPTION AND DISCHARGE PAPERWORK GIVEN TO PT AND ID WRISTBAND REMOVED. PT WALKED OUT OF ER WITH STEADY GAIT AND ALL BELONGINGS.
[2019-04-25 09:09] VITALS: BP 119/68
== END 2019-04-25 09:07 | disposition home or self-care (01) ==
LOC: EMR 08:20
DX: J45.901 Unspecified asthma with (acute) exacerbation (principal)
CPT/HCPCS: 94640; 94664; 99284; J7512; J7620